=== PATIENT | female | born 1940 | race Two or more races ===

== ENCOUNTER 2023-10-22 10:10 | Emergency (ER) | payer OTHER ==
[~2023-10-22] VITALS: Ht 154.9 cm; Wt 45.4 kg
[2023-10-22] MEDS ORDERED: JANUVIA25 MG PO (10:45)
[2023-10-22] MEDS ORDERED: ATORVASTATIN CA20 MG PO (10:45)
[2023-10-22] MEDS ORDERED: OMEPRAZOLE20 MG PO (10:45)
[2023-10-22] MEDS ORDERED: FENOFIBRATE54 MG PO (10:46)
[2023-10-22] MEDS ORDERED: RAMIPRIL2.5 MG PO (10:46)
[2023-10-22] MEDS ORDERED: TIMOLOL MALEATE5 M5 OP (10:46)
[2023-10-22] MEDS ORDERED: ARICEPT5 MG PO (10:47)
[2023-10-22] MEDS ORDERED: ADULT LOW DOSE81 M1 PO (10:47)
[2023-10-22] MEDS ORDERED: SEROQUEL25 MG PO (10:47)
[2023-10-22 11:49] LABS: HEMATOCRIT 29.6 % (36.0-45.00); MEAN CELL VOLUME 88.8 fL (80.00-100.00); MEAN CORPUSCULAR HEMOGLOBIN 29.9 pg (27.00-32.0); MEAN CORPUSCULAR HGB CONC 33.7 g/dl (32.0-36.0); PLATELET COUNT 299 K/uL (150-450); RED BLOOD COUNT 3.33 M/uL (4.00-6.00); RED CELL DISTRIBUTION WIDTH 13.3 % (11.5-14.5)
[2023-10-22 12:09] LABS: ALBUMIN 3.2 gm/dL (3.4-5.0); BILIRUBIN TOTAL 0.34 mg/dL (0.3-1.2); CALCIUM 9.5 mg/dL (8.5-10.1); CREATININE SERUM 1.27 mg/dL (0.55-1.02); GFR 39.99; GLOBULINA 3.7 G/DL (2.4-3.5); POTASSIUM 4.27 mEq/L (3.5-5.1); TOTAL PROTEIN 6.9 gm/dL (6.4-8.2)
[2023-10-22 13:12] LABS: URINE APPEARANCE Clear; URINE BILIRRUBIN Negative (NEGATIVE); URINE BLOOD Negative; URINE COLOR Yellow; URINE GLUCOSE Negative (NEGATIVE); URINE LEUKOCYTE Negative; URINE NITRATE Negative; URINE PROTEIN Negative (NEGATIVE)
[2023-10-22 13:13] LABS: URINE EPITHELIAL CELLS 2.6 uL (0.0-38.8); URINE RBC 24.5 uL (0.0-20.8); URINE WBC 1.8 uL (0.0-23.2)
[2023-10-22 13:23] LABS: URINE BACTERIA 2.5 uL (0.0-1933)
== END 2023-10-22 18:25 | disposition home or self-care (01) ==
LOC: ER 10:10
PROVIDERS: Emergency Medicine
DX: F03.90 Unspecified dementia, unspecified severity, without behavioral disturbance, psychotic disturbance, mood disturbance, and anxiety (principal); Z88.6 Allergy status to analgesic agent; F32.89 Other specified depressive episodes; E11.9 Type 2 diabetes mellitus without complications; Z79.84 Long term (current) use of oral hypoglycemic drugs; Z20.822 Contact with and (suspected) exposure to COVID-19

== ENCOUNTER 2024-10-20 16:15 | Inpatient (IN) | payer OTHER ==
[~2024-10-20] VITALS: Ht 154.9 cm; Wt 40.8 kg
[~2024-10-20 16:15] MED LIST: ADULT LOW DOSE81 M1 PO; ARICEPT5 MG PO; ATORVASTATIN CA20 MG PO; FENOFIBRATE54 MG PO; JANUVIA25 MG PO; LYVISPAH5 MG PO; OMEPRAZOLE20 MG PO; QUETIAPINE FUM400 M1 PO; RAMIPRIL2.5 MG PO; SEROQUEL25 MG PO; TIMOLOL MALEATE5 M5 OP
[2024-10-20] MEDS ORDERED: CHILDREN'S ASPI81 MG (16:19)
[2024-10-20] MEDS ORDERED: FEOSOL325 MG (16:19)
[2024-10-20] MEDS ORDERED: ACID REDUCER20 M1 (16:19)
[2024-10-20] MEDS ORDERED: ARICEPT5 MG (16:19)
[2024-10-20] MEDS ORDERED: JANUVIA25 MG (16:19)
[2024-10-20] MEDS ORDERED: ATORVASTATIN CA10 MG (16:20)
[2024-10-20] MEDS ORDERED: ALTACE2.5 MG (16:20)
--- NOTE | 2024-10-20 16:22 | NUR ---
SE RECIBE PTE LETARGICA EN EN AMBULANCIA, PERSONAL PARAMEDICO REFIERE TRAER A PTE POR DEBILIDAD Y FALTA DE APETITO. SE MIDEN S/V A PTE, SE REALIZA DXT Y EKG. PTE CON BP MANUAL 60/40. PTE SE UBICA EN UNIDAD DE CHEST PAIN Y SE CONECTA A MONITOR CARDIACO CON OXIMETRIA CONTINUA.
[2024-10-20] MEDS ORDERED: NOREPINEPHRINE BITARTRATE 8 MG in DEXTROSE 5 % IN WATER 250 ML IV SCH (16:30)
[2024-10-20] MEDS ORDERED: RINGERS SOLUTION,LACTATED 1,000 ML IV SCH (16:30)
[2024-10-20] MEDS ORDERED: PIPERACILLIN/TAZOBACTAM SODIUM 3.375 GM VIAL IV ONE (16:30)
[2024-10-20 16:54] LABS: HEMATOCRIT 31.9 % (36.0-45.00); HEMOGLOBIN 10.4 g/dL (12.0-15.00); MEAN CELL VOLUME 90.1 fL (80.00-100.00); MEAN CORPUSCULAR HEMOGLOBIN 29.3 pg (27.00-32.0); MEAN CORPUSCULAR HGB CONC 32.5 g/dl (32.0-36.0); RED BLOOD COUNT 3.54 M/uL (4.00-6.00); RED CELL DISTRIBUTION WIDTH 16.1 % (11.5-14.5)
[2024-10-20 16:56] LABS: PLATELET COUNT 68 K/uL (150-450)
[2024-10-20 17:00] LABS: INR 1.08; PROTHROMBIN TIME 11.7 SECONDS (9.0-11.5)
[2024-10-20 17:06] LABS: PARTIAL THROMBOPLASTIN TIME 39.7 SECONDS (22.0-34.0)
[2024-10-20 17:11] LABS: URINE APPEARANCE Clear; URINE BILIRRUBIN Negative (NEGATIVE); URINE BLOOD Negative; URINE COLOR Yellow; URINE GLUCOSE Negative (NEGATIVE); URINE KETONE Negative (NEGATIVE); URINE LEUKOCYTE Small; URINE NITRATE Negative; URINE PROTEIN Negative (NEGATIVE); URINE UROBILINOGEN 0.2 E.U./dl
[2024-10-20 17:12] LABS: URINE BACTERIA 385.5 uL (0.0-1933); URINE CAST 7.78 uL (0.0-1.40); URINE EPITHELIAL CELLS 16.3 uL (0.0-38.8); URINE RBC 3.3 uL (0.0-20.8); URINE WBC 33.6 uL (0.0-23.2)
[2024-10-20 17:20] LABS: ALBUMIN 2.3 gm/dL (3.4-5.0); BILIRUBIN TOTAL 0.19 mg/dL (0.3-1.2); CALCIUM 9.2 mg/dL (8.5-10.1); CREATININE SERUM 0.83 mg/dL (0.55-1.02); GFR 65.18; GLOBULINA 3.2 G/DL (2.4-3.5); TOTAL PROTEIN 5.5 gm/dL (6.4-8.2)
[2024-10-20 17:31] LABS: POTASSIUM 6.34 mEq/L (3.5-5.1)
[2024-10-20] MEDS ORDERED: INSULIN REGULAR, HUMAN 1,000 UNIT/10 ML UNITS IV ONE (17:45)
[2024-10-20] MEDS ORDERED: CALCIUM GLUCONATE 100 MG/ML VIAL IV ONE (17:45)
[2024-10-20] MEDS ORDERED: 0.9 % SODIUM CHLORIDE 1,000 ML IV ONE (17:45)
[2024-10-20] MEDS ORDERED: SODIUM POLYSTYRENE SULFONATE 15 G/4 TSP TSP PO ONE (17:45)
[2024-10-20] MEDS ORDERED: 0.9 % SODIUM CHLORIDE 1,000 ML IV SCH (17:45)
[2024-10-20] MEDS ORDERED: DEXTROSE 50 % IN WATER 0.5 G/ML VIAL IV ONE (17:45)
[2024-10-20] MEDS ORDERED: IPRATROPIUM BROMIDE 0.5 MG/2.5 ML AMPUL.NEB IH SCH (17:46)
[2024-10-20 17:56] LABS: MAGNESIUM 2.3 mg/dL (1.8-2.4); PHOSPHOROUS 4.4 mg/dL (2.5-4.9)
[2024-10-20] MEDS ORDERED: ONDANSETRON HCL 4 MG in 0.9 % SODIUM CHLORIDE 50 ML IV PRN (18:00)
[2024-10-20] MEDS ORDERED: DEXTROSE 50 % IN WATER 0.5 G/ML DISP.SYRIN IV PRN (18:00)
[2024-10-20] MEDS ORDERED: PIPERACILLIN/TAZOBACTAM SODIUM 3.375 GM in DEXTROSE 5 % IN WATER 100 ML IV SCH (18:00)
[2024-10-20] MEDS ORDERED: ACETAMINOPHEN 500 MG GEL..CAP PO PRN (18:00)
[2024-10-20] MEDS ORDERED: INSULIN LISPRO 1,000 UNIT/10 ML UNITS SUBCUTANEO PRN (18:00)
[2024-10-20 18:07] LABS: ABG PH 7.274 (7.35-7.45); ABG PO2 81.2 mmHg (80-100); ABG pCO2 55.8 mmHg (35-45); BASE EXCESS -2.5 mmol/l; BICARBONATE 25.3 mmol/l (23-25); allen test SATISFACTORY; o2 21 %; puncture site RADIAL RIGHT
[2024-10-20 18:08] LABS: SaO2 93.8 %
[2024-10-20 19:45] VITALS: BP 76/44; O2SAT 95
[2024-10-20] MEDS ORDERED: DOPamine HCL IN DEXTROSE 5 % 250 ML IV SCH (19:45)
[2024-10-20 20:38] VITALS: BP 85/64
[2024-10-20 23:30] VITALS: BP 164/86; O2SAT 100
[2024-10-21] VITALS (19 sets, daily range): BP systolic 47–169; BP diastolic 38–89; O2SAT 95–100
[2024-10-21 08:27] LABS: CALCIUM 8.3 mg/dL (8.5-10.1); CREATININE SERUM 0.92 mg/dL (0.55-1.02); GFR 57.88; POTASSIUM 5.58 mEq/L (3.5-5.1); TSH 0.794 uIU/mL (0.358-3.74)
[2024-10-21] MEDS ORDERED: DOPamine HCL IN DEXTROSE 5 % 250 ML IV SCH (08:30)
[2024-10-21] MEDS ORDERED: PANTOPRAZOLE SODIUM 40 MG/VIAL VIAL IV SCH (09:00)
[2024-10-21] MEDS ORDERED: MEROPENEM 1,000 MG in 0.9 % SODIUM CHLORIDE 100 ML IV SCH (13:35)
[2024-10-21] MEDS ORDERED: VANCOMYCIN HCL 1,000 MG VIAL IV ONE (13:45)
[2024-10-21] MEDS ORDERED: DOXYCYCLINE HYCLATE 100MG IV SCH (17:00)
[2024-10-21] MEDS ORDERED: MEROPENEM 500 MG in 0.9 % SODIUM CHLORIDE 50 ML IV SCH (17:00)
[2024-10-22] VITALS (22 sets, daily range): BP systolic 74–157; BP diastolic 40–87; O2SAT 90–100
[2024-10-22 11:46] LABS: ALBUMIN 1.7 gm/dL (3.4-5.0); BILIRUBIN TOTAL 0.49 mg/dL (0.3-1.2); CALCIUM 8.3 mg/dL (8.5-10.1); CREATININE SERUM 1.17 mg/dL (0.55-1.02); GFR 43.86; GLOBULINA 3.3 G/DL (2.4-3.5); POTASSIUM 5.75 mEq/L (3.5-5.1)
[2024-10-22] MEDS ORDERED: NOREPINEPHRINE BITARTRATE 8 MG in DEXTROSE 5 % IN WATER 250 ML IV SCH (12:00)
[2024-10-22 12:34] LABS: HEMATOCRIT 32.1 % (36.0-45.00); HEMOGLOBIN 10.2 g/dL (12.0-15.00); MEAN CELL VOLUME 91.2 fL (80.00-100.00); MEAN CORPUSCULAR HEMOGLOBIN 28.9 pg (27.00-32.0); MEAN CORPUSCULAR HGB CONC 31.7 g/dl (32.0-36.0); RED BLOOD COUNT 3.52 M/uL (4.00-6.00); RED CELL DISTRIBUTION WIDTH 16.7 % (11.5-14.5)
[2024-10-22 12:38] LABS: PLATELET COUNT 49 K/uL (150-450)
[2024-10-23] MEDS ORDERED: MEROPENEM 500 MG in 0.9 % SODIUM CHLORIDE 50 ML IV SCH (09:00)
[2024-10-23 10:55] VITALS: BP 120/73; O2SAT 94
[2024-10-23 15:41] VITALS: BP 99/54; O2SAT 92
[2024-10-23 19:00] VITALS: BP 102/54; O2SAT 93
[2024-10-23 21:00] VITALS: BP 115/56; O2SAT 100
[2024-10-24] VITALS (8 sets, daily range): BP systolic 98–130; BP diastolic 52–70; O2SAT 86–98
[2024-10-25] VITALS (13 sets, daily range): BP systolic 82–156; BP diastolic 44–73; O2SAT 80–98
[2024-10-25] MEDS ORDERED: HYDROCORTISONE SODIUM SUCC/PF 100 MG VIAL IV SCH (13:00)
[2024-10-25 13:22] LABS: ABG PH 7.179 (7.35-7.45); ABG pCO2 46.9 mmHg (35-45); BASE EXCESS -11.2 mmol/l; SaO2 70.7 %
[2024-10-25 13:23] LABS: Tco2 18.5 mmol/l; allen test SATISFACTORY; o2 32 %; puncture site RADIAL LEFT
[2024-10-25 19:02] LABS: HEMATOCRIT 32.9 % (36.0-45.00); HEMOGLOBIN 10.5 g/dL (12.0-15.00); MEAN CELL VOLUME 90.9 fL (80.00-100.00); MEAN CORPUSCULAR HGB CONC 31.9 g/dl (32.0-36.0); RED BLOOD COUNT 3.61 M/uL (4.00-6.00)
[2024-10-25 19:11] LABS: PLATELET COUNT 26 K/uL (150-450)
[2024-10-25 19:17] LABS: ALBUMIN 1.6 gm/dL (3.4-5.0); BILIRUBIN TOTAL 0.36 mg/dL (0.3-1.2); CALCIUM 7.6 mg/dL (8.5-10.1); CREATININE SERUM 1.38 mg/dL (0.55-1.02); GFR 36.25; GLOBULINA 2.9 G/DL (2.4-3.5); MAGNESIUM 1.7 mg/dL (1.8-2.4); PHOSPHOROUS 4.2 mg/dL (2.5-4.9); POTASSIUM 5.06 mEq/L (3.5-5.1); TOTAL PROTEIN 4.5 gm/dL (6.4-8.2)
[2024-10-25 23:04] LABS: ABG PH 7.142 (7.35-7.45); ABG PO2 64.1 mmHg (80-100); ABG pCO2 47.8 mmHg (35-45); BASE EXCESS -12.9 mmol/l; SaO2 82.1 %; Tco2 17.5 mmol/l
[2024-10-25 23:05] LABS: o2 100 %
[2024-10-25 23:08] LABS: allen test SATISFACTORY; puncture site RADIAL LEFT
[2024-10-26] VITALS (17 sets, daily range): BP systolic 73–1129; BP diastolic 42–94; O2SAT 93–98
[2024-10-27] VITALS (21 sets, daily range): BP systolic 41–125; BP diastolic 26–96; O2SAT 72–100
[2024-10-27] MEDS ORDERED: ATROPINE SULFATE 0.1 MG/ML DISP.SYRIN IV ONE (21:30)
== END 2024-10-27 19:24 | disposition expired | DRG 871 ==
LOC: ER 16:15 → ICU-2 18:34 → ICU 10-26 21:46
PROVIDERS: General Practice; Internal Medicine; ADMIT Internal Medicine; ATTEND Internal Medicine
PROC: BW24ZZZ Computerized Tomography (CT Scan) of Chest and Abdomen (ICD-10-PCS; principal; 2024-10-20)
PROC: B24BYZZ Ultrasonography of Heart with Aorta using Other Contrast (ICD-10-PCS; 2024-10-20)
PROC: B020ZZZ Computerized Tomography (CT Scan) of Brain (ICD-10-PCS; 2024-10-22)
PROC: 02HV33Z Insertion of Infusion Device into Superior Vena Cava, Percutaneous Approach (ICD-10-PCS; 2024-10-22)
DX: A41.9 Sepsis, unspecified organism (principal); J18.9 Pneumonia, unspecified organism; R65.21 Severe sepsis with septic shock; J69.0 Pneumonitis due to inhalation of food and vomit; N39.0 Urinary tract infection, site not specified; F03.90 Unspecified dementia, unspecified severity, without behavioral disturbance, psychotic disturbance, mood disturbance, and anxiety; I10 Essential (primary) hypertension; E11.9 Type 2 diabetes mellitus without complications; Z79.4 Long term (current) use of insulin; G20.A1 Parkinson's disease without dyskinesia, without mention of fluctuations; F02.80 Dementia in other diseases classified elsewhere, unspecified severity, without behavioral disturbance, psychotic disturbance, mood disturbance, and anxiety; Z66 Do not resuscitate